=== PATIENT | female | born 1975 | race Caucasian/White ===

== ENCOUNTER 2018-01-09 15:59 | Emergency (ER) | payer OTHER ==
[~2018-01-09] VITALS: Ht 162.6 cm; Wt 56.7 kg
[2018-01-09] MEDS ORDERED: AMOX-430 PO (16:09)
[2018-01-09 16:47] VITALS: BP 104/58
== END 2018-01-09 16:50 | disposition home or self-care (01) ==
LOC: ER 16:00
DX: H00.024 Hordeolum internum left upper eyelid (principal); Z79.899 Other long term (current) drug therapy
CPT/HCPCS: A4663

== ENCOUNTER 2019-06-17 19:05 | Emergency (ER) | payer OTHER ==
[~2019-06-17] VITALS: Ht 162.6 cm; Wt 56.7 kg
[~2019-06-17 19:05] MED LIST: AMOX-430 PO
[2019-06-17 19:36] VITALS: BP 115/77
--- NOTE | 2019-06-17 19:36 | NUR ---
Patient discharged to home in stable conditon. Written and verbal after care instructions given. Patient verbalizes understanding of instructions. WALKED OUT OF ER WITH NO DISTRESS NOTED.
== END 2019-06-17 19:38 | disposition home or self-care (01) ==
LOC: ER 19:06
DX: H00.011 Hordeolum externum right upper eyelid (principal); Z79.899 Other long term (current) drug therapy
CPT/HCPCS: A4663

== ENCOUNTER 2023-10-08 19:15 | Emergency (ER) | payer OTHER ==
[~2023-10-08] VITALS: Ht 157.5 cm; Wt 56.7 kg
[2023-10-08 22:09] VITALS: BP 107/66; TEMP 98.5; O2SAT 99
== END 2023-10-08 22:10 | disposition home or self-care (01) ==
LOC: ER 19:17
DX: I49.3 Ventricular premature depolarization (principal); Z98.890 Other specified postprocedural states; Z79.899 Other long term (current) drug therapy
CPT/HCPCS: 93005; A4606; A4663